=== PATIENT | female | born 1970 ===

== ENCOUNTER 2016-11-30 17:21 | Inpatient (IN) | payer MEDICARE, MEDICAID ==
--- NOTE | 2016-11-30 18:10 | C.PDOC ---
History Of Present Illness 46 y/o female with bipolar disorder sent from [facility] for admission. pt reports hearing voices calling her a whore and says she sometimes screams out loud back at the voices. denies hi and si. c/o mild diarrhea. no abdominal pain, Time Seen by Provider: 11/30/16 17:30 Chief Complaint (Nursing): Psychiatric Evaluation History Per: Patient History/Exam Limitations: no limitations Current Symptoms Are (Timing): Still Present Suicide/Self Injury Attempted (Context): None Recent travel outside of the [place]: No Past Medical History Reviewed: Historical Data, Nursing Documentation, Vital Signs Vital Signs: Last Vital Signs Temp 97.9 F 11/30/16 17:25 Pulse 98 H 11/30/16 17:25 Resp 16 11/30/16 17:25 BP 107/61 11/30/16 17:25 Pulse Ox 98 11/30/16 18:15 - Medical History PMH: Anxiety, Bipolar Disorder, Gastritis Surgical History: No Surg Hx Family History: States: Unknown Family Hx - Social History Hx Tobacco Use: No Hx Alcohol Use: No Hx Substance Use: No - Immunization History Hx Influenza Vaccination: No Review Of Systems Constitutional: Negative for: Fever, Chills Cardiovascular: Negative for: Chest Pain, Palpitations Respiratory: Negative for: Cough Gastrointestinal: Positive for: Diarrhea. Negative for: Nausea, Vomiting Genitourinary: Negative for: Dysuria Musculoskeletal: Positive for: Neck Pain Skin: Negative for: Rash Neurological: Negative for: Weakness, Numbness Physical Exam - Physical Exam Appears: Non-toxic, No Acute Distress Skin: Normal Color, Dry Head: Atraumatic, Normacephalic Oral Mucosa: Moist Neck: Normal ROM Chest: Symmetrical, No Deformity, No Tenderness Cardiovascular: Rhythm Regular, No Murmur Respiratory: Normal Breath Sounds, No Rales, No Rhonchi, No Wheezing Gastrointestinal/Abdominal: Bowel Sounds, Soft, No Tenderness Neurological/Psych: Oriented x3, Normal Speech, Normal Cognition ED Course And Treatment O2 Sat by Pulse Oximetry: 98 Medical Decision Making Medical Decision Making: pt sent from [facility] for admission for bipolar disorder pt is medically cleared for psych evaluation Disposition Discussed With : Anum Lee Doctor Will See Patient In The: Hospital - Disposition Disposition: HOSPITALIZED Disposition Time: 18:13 Condition: STABLE Forms: [email or web address] ([place]) - Clinical Impression Clinical Impression: Bipolar disorder Decision To Admit - Pt Status Changed To: Hospital Disposition Of: Inpatient - Admit Certification Admit to Inpatient:: After my assessment, the patient will require hospitalization for at least two midnights. This is because of the severity of symptoms shown, intensity of services needed, and/or the medical risk in this patient being treated as an outpatient. - InPatient: Physician Admission Certification: I certify that this patient requires 2 or more midnights of care for the following reason:: for psychiatric stabilization - . Bed Request Type: Psychiatry Admitting Physician: Anum Lee Patient Diagnosis: Bipolar disorder
--- NOTE | 2016-11-30 20:09 | PCM.BM ---
<Sabine Kendall - Last Filed: 11/30/16 20:02> Treatment Plan Problems - Problems identified on initial assessmt Auditory Hallucination Date Initiated: 11/30/16 Time Initiated: 20:09 Assessment reference: NA Status: Active Priority: 2 Manic Behavior Date Initiated: 11/30/16 Time Initiated: 20:11 Assessment reference: NA Status: Active Priority: 1 <Anum Lee - Last Filed: 12/01/16 11:13> - Diagnosis (1) Schizophrenia, paranoid, chronic Status: Acute Interventions: 12/01/16 11:13 Take meds Attend groups
[2016-11-30] MEDS ORDERED: Mag&Al/Simet/Diphen/Lido 237 ML KIT PO PRN (20:40)
[2016-11-30] MEDS: Nystatin 100,000 Units/ml Oral Susp 5 ml UD PO SCH (22:21)
--- NOTE | 2016-12-01 06:59 | PCM.BM ---
<ElizabethKervin - Last Filed: 12/01/16 06:58> Treatment Plan Problems - Problems identified on initial assessmt Auditory Hallucination Date Initiated: 11/30/16 Time Initiated: 20:09 Assessment reference: NA Status: Active Priority: 2 Manic Behavior Date Initiated: 11/30/16 Time Initiated: 20:11 Assessment reference: NA Status: Active Priority: 1 Treatment assets and liabiliti Patient Assests: ADL independent, negotiates basic needs Patient Liabilities: other (Manic behavior) - Milieu Protocol Maintain good personal hygiene: daily Encourage regular showers, every shift Remind patient to perform daily oral care Maintain personal safety: every shift Educate patient to report safety concerns to staff, every shift Monitor environment for contraband/sharps Medication safety: Monitor for expected outcome, potential side effects: every shift, Assess barriers to learning: every shift, Assess readiness for medication education: every shift <Kate Robertson - Last Filed: 12/01/16 11:19> Family Contact Family involvement: Family/SO is involved Family contact: Patient agrees to contact Family contact name: parents - Goals for Treatment Patient goals for treatment: "I need different medication." Discharge/Continuing Care - Education Needs Education Needs: Patient Medication, Patient Coping Skills - Discharge Discharge Criteria: Tolerates medication w/o severe side effects, Free of paranoid thoughts, Reduction of target symptoms Discharge to:: Home, With Family - Treatment Team Participation Patient/Family/SO Statement: 12/01/16 11:18 "I'm allergic to a lot of meds." Was Patient/Family/SO present at Treatment Team Meeting: Yes
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
[2016-12-01] MEDS: Nystatin 100,000 Units/ml Oral Susp 5 ml UD PO SCH ×4 (11:39→21:09)
[2016-12-01] MEDS: Divalproex 250 mg DR Tab PO SCH ×2 (18:18→18:27)
[2016-12-02] MEDS: Divalproex 250 mg DR Tab PO SCH ×2 (10:03→17:46)
[2016-12-02] MEDS: Nystatin 100,000 Units/ml Oral Susp 5 ml UD PO SCH ×4 (10:08→21:22)
[2016-12-02] MEDS ORDERED: Aluminum Hydroxide/Magnesium Hydroxide Susp (30 mL) PO PRN (20:52)
--- NOTE | 2016-12-02 21:24 | PCM.PYCHPN ---
Psychiatric Progress Note - Psychiatric Progress Note Patient seen today, length of contact: 17 minutes Patient Chief Complaint: I want to sleep Problems Identified/Issues Discussed: Patient seen and evaluated, chart reviewed and discussed with the nurse. Nurse reported that she refused to take Depakote, neurontin, and klonopin. Patient stated that she is feeling depressed, but her speech was pressure and rambling. She was lying in the bed and on inquiring about refusal of medication she stated that she does not believe that she needs all these medication because of their high potency. She was unable to explain further. She stated that she was unable to sleep last night and now wants to catch her sleep. She denied SI, HI, intent or plan. Patient lacks insight based on her delusional beliefs. Medical Problems: HTN, Gastritis Diagnostic Results: No new labs DSM 5 Symptoms Update: Schizoaffective disorder bipolar type Medication Change: No Medical Record Reviewed: Yes Consults ordered or reviewed: no Mental Status Examination - Cognitive Function Orientation: Person, Place, Situation, Time Memory: Intact Attention: Poor Concentration: Poor Association: Loose Fund of Knowledge: Poor Decription of patient's judgement and insights: Poor/poor - Mood Mood: Depressed, Anxious - Affect Affect: Blunted - Speech Speech: Pressured - Formal Thought Process Formal Thought Process: Hallucinations, Delusions, Paranoia, Loosening of associations, Flight of ideas Psychotic Thoughts and Behaviors: She appeared internally preoccupied and responding to stimuli - Suicidal Ideation Suicidal Ideation: No - Homicidal Ideation Homicidal Ideation: No Goal/Treatment Plan - Goal/Treatment Plan Need for Continued Stay: Remain at risks for inpatient hospitalization, Severe functional impairment Progress Toward Problem(s) and Goals/Treatment Plan: Continue current treatment plan and management as per primary team. Recommend to attend groups. Therapy in milieu Monitor vitals. Estimated Date of D/C: 12/10/16 - Smoking Cessation Smoking Cessation Initiated: No
[2016-12-03] MEDS: Nystatin 100,000 Units/ml Oral Susp 5 ml UD PO SCH ×4 (09:27→21:35)
[2016-12-03] MEDS: Divalproex 250 mg DR Tab PO SCH ×2 (14:08→18:00)
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
[2016-12-04] MEDS: Nystatin 100,000 Units/ml Oral Susp 5 ml UD PO SCH ×4 (10:19→22:03)
[2016-12-04] MEDS: Divalproex 250 mg DR Tab PO SCH ×2 (10:19→20:22)
--- NOTE | 2016-12-04 11:07 | PCM.PYCHPN ---
Psychiatric Progress Note - Psychiatric Progress Note Patient seen today, length of contact: 17 minutes Patient Chief Complaint: "I am hearing voices" Problems Identified/Issues Discussed: Patient was seen and evaluated, chart reviewed and discussed with the team. Pt remained isolated and withdrawn. She is still delusional and paranoid and she appears disorganized, and internally preoccupied. She is not taking care of her hygiene and remained disheveled and unkempt. She still reports of condescending AH -voices that are telling her that 'she is good for nothing'. Patient is refusing a lot of medications because she says she is allergic to them. Patient will be screened today for involuntary commitment at [facility]. Supportive therapy was given. Medication Change: Yes (start depakote) Medical Record Reviewed: Yes Mental Status Examination - Cognitive Function Orientation: Person, Place, Situation, Time Memory: Intact Attention: Poor Concentration: Poor Association: Loose Fund of Knowledge: Poor - Mood Mood: Depressed, Anxious - Affect Affect: Blunted - Speech Speech: Pressured - Formal Thought Process Formal Thought Process: Hallucinations, Delusions, Paranoia, Loosening of associations, Flight of ideas - Suicidal Ideation Suicidal Ideation: No - Homicidal Ideation Homicidal Ideation: No Goal/Treatment Plan - Goal/Treatment Plan Need for Continued Stay: Remain at risks for inpatient hospitalization, Discharge may exacerbated symptoms, Severe functional impairment Progress Toward Problem(s) and Goals/Treatment Plan: Schizoaffective disorder bipolar type CBT Psychoeducation Supportive therapy, group therapy, individual therapy Thorazine 50 mg by mouth twice a day Neurontin 100 mg by mouth 3 times a day Klonopin 1 mg by mouth twice a day Trazodone 50 mg by mouth daily at bedtime Start Depakote 250 mg PO BID Oral Thrush Continue Nystatin Estimated Date of D/C: 12/10/16
[2016-12-05] MEDS: Divalproex 250 mg DR Tab PO SCH ×2 (10:01→18:12)
--- NOTE | 2016-12-05 10:03 | PCM.PYCHPN ---
Psychiatric Progress Note - Psychiatric Progress Note Patient seen today, length of contact: 17 minutes Patient Chief Complaint: "I keep getting anxious" Problems Identified/Issues Discussed: Patient was seen and evaluated and chart reviewed. Pt remained disorganized, and internally preoccupied. She remained isolated and withdrawn and still appears disheveled and unkempt. She still reports of hearing voices when interviewed today morning. Patient is refusing medications because she says she is allergic to medications given. Patient reports that her mouth is dry due to an allergic reaction to medications. Patient was screened yesterday and accepted. [facility] does not have a bed currently so patient cannot be transferred. Supportive therapy was given. Medication Change: No Medical Record Reviewed: Yes Mental Status Examination - Cognitive Function Orientation: Person, Place, Situation, Time Memory: Intact Attention: Poor Concentration: Poor Association: Loose Fund of Knowledge: Poor - Mood Mood: Depressed, Anxious - Affect Affect: Blunted - Speech Speech: Pressured - Formal Thought Process Formal Thought Process: Hallucinations, Delusions, Paranoia, Loosening of associations, Flight of ideas - Suicidal Ideation Suicidal Ideation: No - Homicidal Ideation Homicidal Ideation: No Goal/Treatment Plan - Goal/Treatment Plan Need for Continued Stay: Remain at risks for inpatient hospitalization, Discharge may exacerbated symptoms, Severe functional impairment Progress Toward Problem(s) and Goals/Treatment Plan: Schizoaffective disorder bipolar type CBT Psychoeducation Supportive therapy, group therapy, individual therapy Thorazine 50 mg by mouth twice a day Neurontin 100 mg by mouth 3 times a day Klonopin 1 mg by mouth twice a day Trazodone 50 mg by mouth daily at bedtime Depakote 250 mg PO BID Oral Thrush Continue Nystatin Estimated Date of D/C: 12/10/16 - Smoking Cessation Smoking Cessation Initiated: No
[2016-12-05] MEDS: Nystatin 100,000 Units/ml Oral Susp 5 ml UD PO SCH ×3 (10:05→18:12)
[2016-12-05 16:04] VITALS: BP 127/87; PULSE 93
[2016-12-05 16:15] VITALS: RESP 19; TEMP 97.3; O2SAT 100
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
== END 2016-12-05 19:10 | disposition short-term general hospital (02) | DRG 885 ==
LOC: C.ER 17:21 → C.5E 18:40
PROVIDERS: ADMIT Psychiatry & Neurology Psychiatry; ATTEND Psychiatry & Neurology Psychiatry
PROC: GZ3ZZZZ Medication Management (ICD-10-PCS; principal; 2016-11-30)
PROC: GZHZZZZ Group Psychotherapy (ICD-10-PCS; 2016-11-30)
PROC: GZ56ZZZ Individual Psychotherapy, Supportive (ICD-10-PCS; 2016-11-30)
DX: F25.0 Schizoaffective disorder, bipolar type (principal); B37.0 Candidal stomatitis; R44.0 Auditory hallucinations; F20.0 Paranoid schizophrenia; I10 Essential (primary) hypertension; K29.70 Gastritis, unspecified, without bleeding; Z79.899 Other long term (current) drug therapy; Z88.8 Allergy status to other drugs, medicaments and biological substances